=== PATIENT | male | born 1930 | race Caucasian/White ===

== ENCOUNTER 2016-09-08 17:22 | Emergency (ER) | payer MEDICARE ==
[~2016-09-08] VITALS: Ht 172.7 cm; Wt 76.2 kg
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
--- NOTE | 2016-09-08 17:44 | NUR ---
PATIENT WAS TAKEN TO RADIOLOGY DEPARTMENT
[2016-09-08] MEDS ORDERED: TRAMADOL HCL 50 MG TABLET ONE (18:26)
[2016-09-08] MEDS ORDERED: TRAMADOL HCL 50 MG TABLET PO ONE (18:30)
[2016-09-08 18:37] VITALS: BP 154/78
--- NOTE | 2016-09-08 18:37 | NUR ---
Patient discharged to home in stable condition. Written and verbal after care instructions given. Patient verbalizes understanding of instruction.
== END 2016-09-08 19:10 | disposition home or self-care (01) ==
LOC: ER 17:25
DX: M54.5 Low back pain (principal); M54.2 Cervicalgia; I10 Essential (primary) hypertension; Z95.0 Presence of cardiac pacemaker; I25.10 Atherosclerotic heart disease of native coronary artery without angina pectoris; C18.9 Malignant neoplasm of colon, unspecified; Z95.1 Presence of aortocoronary bypass graft; Z88.2 Allergy status to sulfonamides; Z88.8 Allergy status to other drugs, medicaments and biological substances; V43.62XA Car passenger injured in collision with other type car in traffic accident, initial encounter; Y93.89 Activity, other specified; Y92.413 State road as the place of occurrence of the external cause; Y99.8 Other external cause status
CPT/HCPCS: 72125; 72131; 99284; A4606; L0172; Z7610

== ENCOUNTER 2017-01-31 19:48 | Emergency (ER) | payer MEDICAID, MEDICARE ==
[~2017-01-31] VITALS: Ht 172.7 cm; Wt 82.1 kg
--- NOTE | 2017-01-31 19:55 | NUR ---
PATIENT BIB RA STATING "BEEN OFF OF LASIX 4 DAYS AGO AND NOW HAVE SOB." PATIENT IS A/O X 4. BREATHING EVEN AND UNLABORED. SAT 95% ON ROOM AIR. VITALS STABLE. LUNGS CLEAR TO AUSCULTATION. NO FEVER. SAFETY AND COMFORT MEASURES IN PLACE. AWAITING MD ORDERS.
--- NOTE | 2017-01-31 20:07 | NUR ---
EMT AT BEDSIDE FOR EKG
--- NOTE | 2017-01-31 20:10 | NUR ---
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
[2017-01-31 20:21] LABS: BASOPHILS % (AUTO) 0.2 % (0.0-2.0); EOSINOPHILS # (AUTO) 0.2 /CMM (0.0-0.7); EOSINOPHILS % (AUTO) 1.5 % (0.0-6.0); HEMATOCRIT 28 % (39-51); HEMOGLOBIN 9.1 g/dL (13.5-17.5); LYMPHOCYTES # (AUTO) 1.8 /CMM (0.8-4.8); LYMPHOCYTES % (AUTO) 17.1 % (20.0-44.0); MEAN CORPUSCULAR HEMOGLOBIN 32 PG (26.0-33.0); MEAN CORPUSCULAR HGB CONC 33 g/dl (31.0-36.0); MEAN CORPUSCULAR VOLUME 96 fL (80-96); MONOCYTES # (AUTO) 0.9 /CMM (0.1-1.30); MONOCYTES % (AUTO) 8.4 % (2.0-12.0); NEUTROPHILS # (AUTO) 7.8 /CMM (1.8-8.9); NEUTROPHILS % (AUTO) 72.8 % (43.0-81.0); PLATELET COUNT (AUTO) 139 /CMM (150-450); RDW COEFFICIENT OF VARIATION 16.1 (11.5-15.0); RED BLOOD CELL COUNT(AUTO) 2.89 MIL/uL (4.5-6.0); WHITE BLOOD COUNT (AUTO) 10.7 K/uL (4.3-11.0)
[2017-01-31 20:23] LABS: CALCIUM, SERUM 8.4 mg/dL (8.5-10.1); CARBON DIOXIDE 24 mmol/L (21-32); CHLORIDE 96 mmol/L (98-107); CREATININE 2.2 mg/dL (0.6-1.3); GLUCOSE 119 mg/dL (74-106); POTASSIUM 4.6 mmol/L (3.5-5.1); SODIUM SERUM 129 mmol/L (136-145); UREA NITROGEN, BLOOD 55 mg/dL (7-18)
[2017-01-31 20:31] LABS: TROPONIN I 0.045 ng/mL (0.00-0.056)
[2017-01-31 20:34] LABS: INR 1.08 (0.87-1.13); PROTHROMBIN TIME 11.6 SECS (9.5-12.7)
[2017-01-31 20:36] LABS: ALANINE AMINOTRANSFERASE 28 U/L (12-78); ALKALINE PHOSPHATASE 101 U/L (46-116); ASPARTATE AMINOTRANSFERASE 30 U/L (15-37); B-TYPE NATRIURETIC PEPTIDE 9183 PG/ML (0-125); BILIRUBIN,DIRECT 0.1 mg/dL (0.0-0.2); BILIRUBIN,TOTAL 0.3 mg/dL (0.2-1.0); TOTAL PROTEIN, SERUM 7.2 g/dL (6.4-8.2)
--- NOTE | 2017-01-31 21:05 | NUR ---
PER DR. TORRES, ADMINISTER LASIX IV 20 MG AND NITRO BID . MEDICATIONS PULLED AND ADMINISTERED PER MD ORDERS.
--- NOTE | 2017-01-31 21:10 | NUR ---
URINE OBTAINED AND SENT TO LAB.
[2017-01-31 21:23] LABS: APPEARANCE,URINE CLEAR (CLEAR); BILIRUBIN,URINE NEGATIVE (NEGATIVE); BLOOD, URINE NEGATIVE Ery/uL (NEGATIVE); COLOR,URINE YELLOW (YELLOW); KETONES,URINE NEGATIVE (NEGATIVE); LEUKOCYTE ESTERASE ,URINE NEGATIVE (NEGATIVE); NITRITE, URINE NEGATIVE (NEGATIVE); PH,URINE 6.5 (5.0-8.0); PROTEIN,URINE 2+ mg/dl (NEGATIVE); UGLUCOSE NEGATIVE (NEGATIVE); UROBILINOGEN,URINE 0.2 EU/dL (0.2)
[2017-01-31 21:34] LABS: BACTERIA,URINE None seen /HPF (None Seen); RBC,URINE 0-2 /HPF (0-2); SQUAMOUS EPITHELIAL CELL,UR 0-2 /HPF (None Seen); WBC,URINE 0-2 /HPF (0-3)
[2017-01-31 21:35] LABS: MUCUS,URINE Few /LPF (None Seen)
--- NOTE | 2017-01-31 22:10 | NUR ---
IV removed. Catheter intact and site benign. Pressure and 4x4 applied to site. No bleeding noted. Patient discharged to home in stable condition. Written and verbal after care instructions given. Patient verbalizes understanding of instruction.
[2017-01-31 22:15] VITALS: BP 136/74
== END 2017-01-31 22:10 | disposition home or self-care (01) ==
LOC: ER 19:49
DX: I50.9 Heart failure, unspecified (principal); I11.0 Hypertensive heart disease with heart failure; E11.9 Type 2 diabetes mellitus without complications; E03.9 Hypothyroidism, unspecified; D64.9 Anemia, unspecified; I48.91 Unspecified atrial fibrillation; I49.3 Ventricular premature depolarization; I70.0 Atherosclerosis of aorta; M10.9 Gout, unspecified; N28.9 Disorder of kidney and ureter, unspecified; Z95.1 Presence of aortocoronary bypass graft; Z88.2 Allergy status to sulfonamides; Z88.8 Allergy status to other drugs, medicaments and biological substances
CPT/HCPCS: 36415; 71010-TC; 80048-TC; 80076-TC; 81000-TC; 83880; 84484-TC; 85025-TC; 85730-TC; 87081-TC; A4606; J1940; J2405; Z7610